=== PATIENT | female | born 1940 | race Caucasian/White ===

== ENCOUNTER 2016-06-19 05:25 | Inpatient (IN) | payer OTHER ==
[~2016-06-19] VITALS: Ht 151.1 cm; Wt 70.2 kg
[~2016-06-19 05:25] MED LIST: ASPIRIN81 M2 PO; CELEBREX200 MG PO; COLACE100 MG PO; ERGOCALCIF50000 UNIT PO; FERROUS SULFAT325 MG PO; HYDROCODON-ACE1 EAC7 PO; LEVO-T75 MCG PO; LOPRESSOR100 M1 PO; LOVENOX40 MG/0.4 SC; METOPROLOL TAR100 MG PO; MULTIPLE VITAM1 EAC4 PO; NEXIUM20 MG PO; SENNA PLUS TAB1 EACH PO; TYLENOL EXTRA500 MG PO; VITAMIN D32000 UNI1 PO; ZOCOR20 MG PO
[2016-06-19 05:48] VITALS: BP 147/70
[2016-06-19 10:15] LABS: MCH 30.2 PG (29.0-34.0); MCHC 31.8 G/DL (30.0-36.0); MCV 95.2 FL (83-99); MEAN PLAT.VOLUME 12.3 uM^3 (9.5-12.4); PLATELET COUNT 222 K/uL (156-360); RBC DIS.WIDTH-CV 12.2 % (11.8-14.6); RBC DIS.WIDTH-SD 42.5 % (39-53)
[2016-06-19 10:18] LABS: WHITE BLOOD COUNT 4.4 K/uL (4.1-10.2)
[2016-06-19 10:34] VITALS: BP 140/65
[2016-06-19 16:08] VITALS: BP 111/78; BP 177/72
[2016-06-19 20:15] VITALS: BP 179/77
[2016-06-20] VITALS (7 sets, daily range): BP systolic 129–176; BP diastolic 57–80
[2016-06-20 05:45] LABS: HEMATOCRIT 39.5 % (36.0-46.0); MCV 92.9 FL (83-99)
[2016-06-20 06:14] LABS: ANION GAP 12 MEQ/L (2-14); CHLORIDE 97 MEQ/L (99-109); GFR ESTIMATE (CALCULATED) > 59 mL/min/; GLUCOSE 175 mg/dL (70-99); POTASSIUM 3.8 MEQ/L (3.7-5.4); SAMPLE HEMOLYSIS CHECK 0; SAMPLE ICTERIC CHECK 0; SAMPLE LIPEMIA CHECK 0; SODIUM 132 MEQ/L (136-147); UREA NITROGEN (BUN) 8 mg/dL (9-23)
[2016-06-21 00:06] VITALS: BP 138/50
[2016-06-21 03:43] VITALS: BP 140/63
[2016-06-21 05:05] LABS: HEMATOCRIT 35.6 % (36.0-46.0)
[2016-06-21 05:20] LABS: CHLORIDE 101 mEq/L (99-109); POTASSIUM 3.6 mEq/L (3.7-5.4); SODIUM 134 mEq/L (136-147)
[2016-06-21 05:22] LABS: GLUCOSE 131 mg/dL (70-99)
[2016-06-21 05:23] LABS: ANION GAP 9 MEQ/L (2-14)
[2016-06-21 05:26] LABS: GFR ESTIMATE (CALCULATED) > 59 mL/min/
[2016-06-21 05:27] LABS: UREA NITROGEN (BUN) 8 mg/dL (9-23)
[2016-06-21 08:31] VITALS: BP 153/76
[2016-06-21] MEDS ORDERED: FERROUS SULFAT325 MG PO (08:45)
[2016-06-21] MEDS ORDERED: LOVENOX40 MG/0.4 SC (08:47)
[2016-06-21] MEDS ORDERED: ENDOCET 5-3251 EACH PO (08:47)
[2016-06-21] MEDS ORDERED: CELECOXIB200 MG PO (08:47)
[2016-06-21 12:07] VITALS: BP 125/58
== END 2016-06-21 14:05 | DRG 470 ==
LOC: 2SOUTH 05:25 → 3WEST 10:12 → 2SOUTH 11:30 → 3WEST 06-21 14:05
PROVIDERS: Orthopaedic Surgery; Physician Assistant
PROC: 0SRD0J9 Replacement of Left Knee Joint with Synthetic Substitute, Cemented, Open Approach (ICD-10-PCS; principal; 2016-06-19)
DX: M17.12 Unilateral primary osteoarthritis, left knee (principal); I10 Essential (primary) hypertension; Z96.651 Presence of right artificial knee joint
CPT/HCPCS: 73560; 80048; 85014; 85018; 85027; J0690; J1170; J1650; J2250; J7050